=== PATIENT | female | born 1975 | race Caucasian/White ===

== ENCOUNTER → 2017-06-12 | Outpatient (REF) ==
[~2017-06-12] MED LIST: AMLO-96 PO; AMLO-99 PO; ASCO-191 PO; AZEL23SP NS; CALC500T6 PO; CETI-176 PO; CHOL500045 PO; CYCL10TA29 PO; FLUO-177 PO; FLUO40CA67 PO; FLUT16SP19 NS; HYDR-2963 PO; HYDR-2966 PO; LISI20TA29 PO; LOSA100T67 PO; LOSA25TA50 PO; LOSA50TA72 PO; METF-410 PO; MILK500C2 PO; OMEG-161 PO; OMEP40CA48 PO
[2017-06-12 09:26] LABS: LDL CHOLESTEROL 89 mg/dl
== END ==
DX: Z02.9 Encounter for administrative examinations, unspecified (principal)

== ENCOUNTER → 2017-07-09 | Outpatient (CLI) | payer OTHER ==
--- NOTE | 2017-07-10 09:09 | RADIOLOGY IMAGING REPORT ---
FACILITY: [facility] PATIENT NAME: JEREMIAS KINSEY : [id number] MR: [id number] V: [id number] EXAM DATE: ORDERING PHYSICIAN: EVERARDO CROWLEY TECHNOLOGIST: Dariela Adrian EXAMINATION:TWO-DIMENSIONAL ECHOCARDIOGRAPH REASON:PALPITATIONS, HEART MURMUR. 2D Measurements (normal values in centimeters) LV endLV endRV endVent.LV PostAorticLeftPercent DiastolicSystolicDiastolicSeptumWallRootAtriumShortening (3.5-5.7)(0.9-2.6)(0.6-1.1)(0.6-1.1)(2.0-3.7)(1.9-4.0)(25-35%) [id number]% STROKE VOLUME: 71 mL ESTIMATED EJECTION FRACTION:70% PARASTERNAL LONG AXIS: Overall left ventricular systolic function and chamber sizes all appear to be normal. The right ventricle appears to contract normally as well. No wall motion abnormalities are noted. Color examination of the aortic valve was unremarkable. Color examination of the mitral valve revealed a trace of mitral insufficiency present. PARASTERNAL SHORT AXIS: Overall left ventricular function appears to be normal. Chamber sizes are also normal. The aortic valve is trileaflet in configuration and appears to open normally. Color examination reveals a trace of pulmonic insufficiency and a trace of tricuspid insufficiency present. Tricuspid regurgitation V-max is measured at 2.29 m/sec. Estimated right atrial pressure is 3 mmHg. APICAL FOUR AND TWO CHAMBER: Normal left ventricular systolic function. Normal right ventricular function. The TAPSE measures 2.9. Aortic valve area and mitral valve area both measure within normal range at 2.6 and 3.3 cm2 respectively. The left atrial and right atrial volumes were measured within normal ranges at 17 and 16 mL/m2. Trace of mitral and tricuspid insufficiency is noted. SUBCOSTAL VIEW: No pericardial effusion was noted. No atrial septal or ventricular septal defects were appreciated. Doppler examination of the mitral valve in diastole does reveal a normal pattern. There is no reversal with Valsalva maneuver. OVERALL IMPRESSION: 1. Essentially normal 2-Dimensional echocardiograph. Normal left ventricular systolic and diastolic function. Estimated ejection fraction of 70%. 2. A trace of mitral, tricuspid and pulmonic insufficiency probably physiologic in nature. The estimated right ventricular systolic pressure within normal ranges at 24 mmHg. 3. The aortic valve was trileaflet in configuration, appears to have no abnormalities. Dictated by: Brandon Chris M.D. on 07/09/2017 at 18:29 Transcribed by: CHEYENNE on 07/09/2017 at 22:57 Approved by: Brandon Chris M.D. on 07/10/2017 at 9:08 [facility]
== END ==
LOC: US 00:54
PROVIDERS: ATTEND Nurse Practitioner Primary Care
DX: I34.0 Nonrheumatic mitral (valve) insufficiency (principal); I07.1 Rheumatic tricuspid insufficiency; I37.1 Nonrheumatic pulmonary valve insufficiency
CPT/HCPCS: 93306

== ENCOUNTER → 2017-07-18 | Outpatient (CLI) | payer OTHER ==
[~2017-07-18] MED LIST changes: +IPRA15SP7 NS
== END ==
LOC: LAB 15:52
PROVIDERS: ATTEND Nurse Practitioner Primary Care
DX: E87.1 Hypo-osmolality and hyponatremia (principal)
CPT/HCPCS: 36415; 82310; 82374; 82435; 82565; 82947; 84132; 84295; 84520

== ENCOUNTER 2017-09-26 09:19 | Emergency (ER) | payer OTHER ==
[~2017-09-26 09:19] MED LIST changes: +CAR6.25 PO
--- NOTE | 2017-09-26 09:38 | ER Report ---
History and Physical Time Seen By MD: 09:25 Hx. of Stated Complaint: FELL DOWN A STEP AND HIT RIGHT SHOULDER INTO RAILING HPI/ROS CHIEF COMPLAINT: Right shoulder pain HISTORY OF PRESENT ILLNESS: Otherwise healthy 41-year-old female was walking down some stairs lost her footing and the last of L4 and landed onto her right shoulder she's had pain with abduction and adduction rotation extension and flexion of the shoulder no head or neck trauma no loss of consciousness no periclavicular area no elbow or wrist discomfort pain is localized primarily of anterior shoulder REVIEW OF SYSTEMS: Respiratory: No cough, no dyspnea. Cardiovascular: No chest pain, no palpitations. Gastrointestinal: No vomiting, no abdominal pain. Musculoskeletal: Right shoulder pain Remainder of the 14 system rev: Yes Allergies: Coded Allergies: No Known Drug Allergies (Unverified , 09/26/17) Home Meds Active Scripts Fluoxetine Hcl (FLUOXETINE HCL) 40 Mg Capsule, 1 CAPSULE PO BID, #90 CAPSULE 1 Refill Prov:EVERARDO CROWLEY DNP, FNP- 09/04/17 Ipratropium [place] 0.06% Ns (IPRATROPIUM BROMIDE 0.06% NS) 15 Ml [place], 2 SPRAY NS BID, #3 BOT 3 Refills Prov:EVERARDO CROWLEY DNP [facility] 07/31/17 Carvedilol (CARVEDILOL) 6.25 Mg Tab, 1 TAB PO BID for 90 Days, #180 TAB 0 Refills Prov:EVERARDO CROWLEY DNP [facility] 07/24/17 Losartan Potassium (LOSARTAN POTASSIUM) 100 Mg Tablet, 1 TAB PO QDAY, #90 TAB 2 Refills Prov:EVERARDO CROWLEY DNP [facility]- 07/11/17 Metformin Hcl (METFORMIN HCL) 500 Mg Tablet, 1 TAB PO BID, #180 TAB 0 Refills Prov:EVERARDO CROWLEY DNP [facility]- 06/18/17 Amlodipine Besylate (AMLODIPINE BESYLATE) 10 Mg Tablet, 1 TAB PO QDAY, #90 TAB 0 Refills Prov:EVERARDO CROWLEY DNP [facility]- 04/20/17 Cyclobenzaprine Hcl (CYCLOBENZAPRINE HCL) 10 Mg Tablet, 1 TAB PO TID Y for MUSCLE SPASMS, #30 TAB 0 Refills Prov:EVERARDO CROWLEY DNP [facility]- 04/16/17 Cetirizine Hcl (ZYRTEC) 10 Mg Tablet, 1 TAB PO QDAY, #90 TAB 0 Refills Prov:EVERARDO CROWLEY NELLA, [facility] 04/16/17 Reported Medications Milk Thistle (MILK THISTLE) 500 Mg Capsule, 250 MG PO QDAY, CAPSULE 04/16/17 [place]-3/Dha/Epa/Fish Oil (FISH OIL EC 1,000 MG SOFTGEL) 1 Each Capsule.dr, 1 EACH PO DAILY 03/15/17 Calcium Carbonate (CALCIUM) 500 Mg Tablet, 1 TAB PO DAILY 03/15/17 Cholecalciferol (Vitamin D3) (VITAMIN D) 5,000 Unit Tablet, 1 TAB PO DAILY 03/15/17 Ascorbic Acid (VITAMIN C) 1,000 Mg Tablet, 4 TAB PO DAILY 03/15/17 Reviewed Nurses Notes: Yes Old Medical Records Reviewed: Yes Smoking Status: Current: Every Day Smoker Hx Substance Use Disorder: No Hx Alcohol Use: Yes Constitutional Vital Sign - Last 24 Hours 09/26/17 09:24 Temp 98.5 Pulse 82 Resp 14 B/P (MAP) 147/100 Pulse Ox 96 O2 Delivery Room Air Physical Exam General appearance: [Alert no distress.] Respiratory: Chest is non tender, lungs are clear to auscultation. Cardiac: Regular rate and rhythm [ ] Right shoulder examination patient has pain to palpation of the anterior aspect of the right glenohumeral joint possibly an before meals separation patient has neurovascularly intact range of motion is difficult to appreciate due to pain and discomfort she has pain with flexion extension rotation and abduction and abduction of the shoulder no O wound or wrist abnormalities noted no obvious signs of ecchymosis or bruising DIFFERENTIAL DIAGNOSIS: After history and physical exam differential diagnosis was considered for right shoulder contusion versus fracture versus separation Medical Decision Making ED Course/Re-evaluation ED Course ED clinical course 41-year-old female had a mechanical fall Presentation ends up having 2 small cortical fractures of the right shoulder placed in a shoulder support and follow-up with orthopedics Decision to Disposition Date: Sep 26, 2017 Decision to Disposition Time: 10:12 Depart Departure Latest Vital Signs Vital Signs Date Time Temp Pulse Resp B/P (MAP) Pulse Ox O2 Delivery O2 Flow Rate FiO2 09/26/17 09:24 98.5 82 14 147/100 96 Room Air Impression: Primary Impression: Shoulder fracture Condition: Improved Disposition: HOME OR SELF-CARE Referrals: EVERARDO CROWLEY DNP, [facility] (PCP) KIARA FRIED MD 5 Days Patient Instructions: Arm Fracture in Adults (ED) KENDY NUNEZ MD Sep 26, 2017 09:38
[2017-09-26 10:00] VITALS: BP 137/85
--- NOTE | 2017-09-26 10:05 | RADIOLOGY IMAGING REPORT ---
FACILITY: [facility] PATIENT NAME: Eliana Pittman : 1975 MR: [id number] V: [id number] EXAM DATE: ORDERING PHYSICIAN: KENDY NUNEZ TECHNOLOGIST: Location: [facility] - [place] Patient: Eliana Pittman : 1975 Visit/Account:[id number] Date of Sevice: 09/26/2017 EXAMINATION: Right shoulder radiographs 2 views HISTORY: Fall, pain COMPARISON: None. FINDINGS: Frontal view into scapula Y views obtained. Normal alignment and joint spaces. The visible right beni ng is clear. Two linear ossifications seen adjacent to the right humerus greater tuberosity on the f rontal view. IMPRESSION: Two small nonunited linear ossifications adjacent to the right humerus greater tuberosity concerning for acute cortical fracture fragments given history. Otherwise normal right shoulder radiographs. Report Dictated By: Rufino Leung MD at 09/26/2017 9:58 AM Report E-Signed By: Rufino Leung MD at 09/26/2017 10:01 AM WSN:[id number]
== END 2017-09-26 10:34 | disposition home or self-care (01) ==
LOC: ER 09:22
DX: S42.91XA Fracture of right shoulder girdle, part unspecified, initial encounter for closed fracture (principal); W10.9XXA Fall (on) (from) unspecified stairs and steps, initial encounter
CPT/HCPCS: 73030; 99282; A4565

== ENCOUNTER → 2017-11-19 | Outpatient (CLI) | payer OTHER ==
[~2017-11-19] MED LIST changes: -METF-410 PO; +METF-411 PO
== END ==
LOC: LAB 13:30
PROVIDERS: ATTEND Nurse Practitioner Primary Care
DX: I10 Essential (primary) hypertension (principal); R73.03 Prediabetes
CPT/HCPCS: 36415; 82040; 82247; 82310; 82374; 82435; 82565; 82947; 83036; 84075; 84132; 84155; 84295; 84450; 84460; 84520

== ENCOUNTER 2017-12-04 15:00 | Outpatient (RCR) | payer OTHER ==
--- NOTE | 2017-10-24 12:17 | PT INITIAL EVALUATION ---
MEDICAL DIAGNOSIS: Right Shoulder Closed Minimally-displaced Greater Tuberosity Fracture TREATMENT DIAGNOSIS: Right Shoulder Closed Minimally-displaced Greater Tuberosity Fracture DATE OF ONSET: 09/25/17 SUBJECTIVE: Eliana is a 42 year-old female presenting to physical therapy following recent fall with injury to her R shoulder. Pt reports that on September 25, 2017 she was going down stairs when she missed a step and ended smashing her R shoulder. Following imaging on pt was shown to have a closed minimally- displaced greater tuberosity fracture and was given a sling to heal without intervention. Pt has had minimal shoulder mobility since given the sling but does report that she occasionally does not wear her sling. Pt had imaging last on October 12 which showed good healing of the fracture allowing progress towards PT intervention. Pt reports her pain as very minimal at rest at 1-2/10 and with movement increasing towards 5/10. Pain is on the shoulder laterally mostly but occasionally she also has scapular pain. REHAB PROBLEM LIST: Increased Pain Decreased ROM Decreased Strength Decreased Endurance Decreased Function Decreased ADL's Decreased Mobility PREVIOUS MEDICAL HISTORY: See EMR OCCUPATION: [employer] in the [employer] Dept[employer] at [employer] OBJECTIVE: ROM: Shoulder AROM: Flexion: R 70, L 175, ER: R 65, L 75, IR: R T9 level, L T3 level. R PROM: Flexion: 115, Abd: 120, Scap: 160, ER: 85, IR: 90. Strength: Shoulder Strength not tested at this time secondary to still healing fx. Palpation: Pt is tender to palpation of RTC muscles and minimally on the greater tuberosity. Sensation: Pt reports no numbness or tingling of the R UE. Other Objective Findings: Quick DASH: 38% disability score ASSESSMENT: Eliana shows signs and symptoms consistent with R shoulder tuberosity fx with prolonged immobilization. Physical therapy is indicated for this patient to address the above listed impairments to return pt to prior level of function. Short Term Goals In 2 weeks pt will improve right shoulder PROM to equal to that of the contralateral limb for improved function with ADL's. In 4 weeks pt will improve right shoulder AROM to equal to that of the contralateral limb for improved function with ADL's. In 6 weeks pt will improve right shoulder strength to equal to that of the contralateral limb for improved function with ADL's. In 6 weeks pt will increase Quick DASH impairment rating to <20% for improved function with ADL's and recreational activities as well as return to work duties. Patient's Goals Regain shoulder mobility and strength to return to work and full ADL's. PLAN: Patient to be seen for Manual Therapy/STM/MET Strengthening/condition Ice/Heat Range of Motion Spinal Stabilization Ultrasound Stretching Iontophoresis Neuromuscular Re-ed Closed Chain Program Electrical Stim Posture/Body mechanics Biofeedback Home Exercise Program Mech./Manual Traction Therapeutic Activities 3x/Week for 6 Weeks If you have any questions, comments, or concerns about this report or plan, please contact me at . Thank you, Radha Hernandez, PT, DPT, CLT MTDD
== END 2017-12-04 18:00 | disposition home or self-care (01) ==
LOC: PT 15:00
PROVIDERS: ATTEND Orthopaedic Surgery
DX: Z47.89 Encounter for other orthopedic aftercare (principal); S42.251A Displaced fracture of greater tuberosity of right humerus, initial encounter for closed fracture; M25.511 Pain in right shoulder; W10.8XXA Fall (on) (from) other stairs and steps, initial encounter
CPT/HCPCS: 97161

== ENCOUNTER → 2018-03-14 | Outpatient (CLI) | payer OTHER ==
[~2018-03-14] MED LIST changes: +AMLO-111 PO; +AMLO-113 PO; -AMLO-96 PO; -AMLO-99 PO; -LOSA100T67 PO; +LOSA100T69 PO; -LOSA25TA50 PO; +LOSA25TA52 PO; -LOSA50TA72 PO; +LOSA50TA74 PO; +MELO-207 PO; -METF-411 PO; +METF-450 PO
--- NOTE | 2018-03-14 15:51 | RADIOLOGY IMAGING REPORT ---
FAC[place] [facility] [place]IENT NAME: Eliana Pittman : 1975 MR: [id number] V: [id number] EXAM DATE: ORDERING PHYSICIAN: ALEXSANDER CASTANON TECHNOLOGIST: [place] [facility] [place] Eliana Pittman : 1975 Visit/Account:[id number] Date of Sevice: 03/14/2018 TOE LEFT FOOT SECOND DIGIT Indication: Toe pain Comparison: None Available Findings: No evidence of fracture, dislocation, or acute osseous abnormality. There is no focal soft tissue abnormality. No evidence of radiopaque foreign body. IMPRESSION: No acute osseous abnormality of the left second toe Report Dictated By: Wilfredo Dang MD at 03/14/2018 3:45 PM Report E-Signed By: Wilfredo Dang MD at 03/14/2018 3:46 PM WSN:[id number]
== END ==
LOC: LAB 14:52
PROVIDERS: ATTEND Internal Medicine
DX: I10 Essential (primary) hypertension (principal); E11.9 Type 2 diabetes mellitus without complications; R60.9 Edema, unspecified; M79.675 Pain in left toe(s)
CPT/HCPCS: 36415; 82040; 82247; 82310; 82374; 82435; 82565; 82947; 84075; 84132; 84155; 84295; 84450; 84460; 84520; 84550

== ENCOUNTER → 2018-11-11 | Outpatient (CLI) | payer OTHER ==
[~2018-11-11] MED LIST changes: -AMLO-111 PO; -AMLO-113 PO; +AMLO-125 PO; +AMLO-127 PO; -LOSA100T69 PO; +LOSA100T75 PO; -LOSA25TA52 PO; +LOSA25TA57 PO; -LOSA50TA74 PO; +LOSA50TA80 PO
== END ==
LOC: LAB 14:03
PROVIDERS: ATTEND Nurse Practitioner Primary Care
DX: E11.9 Type 2 diabetes mellitus without complications (principal)
CPT/HCPCS: 36415; 82040; 82247; 82310; 82374; 82435; 82565; 82947; 83036; 84075; 84132; 84155; 84295; 84450; 84460; 84520